=== PATIENT | female | born 1960 | race Hispanic/Latino ===

== ENCOUNTER → 2017-11-17 | Day surgery (SDC) | payer MEDICARE ==
[~2017-11-17] MED LIST: ACETAMINOPHEN 1000 MG/100 ML IV ONE; AMBIEN5 MG PO; BUPIVACAINE HCL 0.5% INJ 30 ML VIAL INJ ONE; CEFAZOLIN SOD 2 GM/D5W 50ML 50 ML IV ONE; DEXAMETHASONE SOD PHOS INJ 4 MG/ML VIAL ONE; FENTANYL CITRATE/PF 100MCG/2 ML INJ ONE; LIDOCAINE HCL 2% LOCAL INJ 5 ML SDV VIAL INJ ONE; MIDAZOLAM HCL 2 MG/2 ML VIAL ONE; NEOSTIGMINE 1 MG/ML 10ML VIAL ONE; NORCO 5-325 TA1 EACH PO; ONDANSETRON HCL INJ 2 MG/ML VIAL ONE; PROPOFOL IV EMULSION 10 MG/ML 20 ML VIAL ONE; SEVOFLURANE INHAL SOLN 250 ML PEN BTL ONE
--- NOTE | 2017-11-17 10:48 | Operative Report ---
DATE OF PROCEDURE: November 17, 2017 EMPLOYMENT OFFICER: None PREOPERATIVE DIAGNOSIS: Painful keloid scar. POSTOPERATIVE DIAGNOSES 1. Painful keloid scar. 2. Hypertrophic medial aspect of the sesamoid, left foot. PROCEDURES 1. Excision of keloid scar with rotational flap closure. 2. Excision of hypertrophy part of the sesamoid of the medial sesamoid, left foot. PATHOLOGY REMOVED: Scars sent for pathology. HEMOSTASIS: Pneumatic ankle tourniquet. ESTIMATED BLOOD LOSS: Less than 10 mL. MATERIALS: 4-0 nylon and 4-0 Vicryl. INJECTABLES: One mL of Decadron to prevent hypertrophic scar. COMPLICATIONS: None. CONDITION: Stable. PROCEDURE IN DETAIL: Under mild sedation, the patient was brought to the operating room and placed on the operating table in the supine position. Following IV sedation, anesthesia was obtained with general anesthetic. At this point, the left foot was scrubbed, prepped and draped in the usual aseptic manner. It was then lowered to the table. Excision of keloid scar. Attention was then directed to the left foot where 2 semi-elliptical incisions were made in order to access the keloid scar. The incision was deepened down to the pigment and scar was completely excised. It was made in a 3:1 ratio in order to rotate the skin and be able to close it. Attention was then directed to the plantar aspect of the medial sesamoid where it was noted that the tibial sesamoid was hypertrophied. Utilizing an oscillating saw, I had to rasp the hypertrophied part of the sesamoid that was removed. The area was then made smooth with a hand rasp. The area was then flushed with copious amount of normal sterile saline solution. The area was then closed closing the deepest layer with 4-0 Vicryl and 4-0 nylon. One mL of Decadron was infiltrated into the scar in order to prevent hypertrophy to the area. The incision was then dressed with sterile compressive dressing consisting of Adaptic, 4 x 4's, Kerlix, and an Td bandage. The tourniquet was deflated. There was noted to be hyperemic response to all the digits. The patient tolerated the procedure and anesthesia well without complications. Was transported to the recovery room with vital signs stable and vascular status intact to both feet. The patient will be discharged home once she met criteria. She was instructed to be nonweightbearing, ice and elevate the foot while at rest. Follow up with me in the office, and to call the office if she had any questions, concerns or any problems arise. Job#: [id number] JAMES
== END | disposition home or self-care (01) ==
LOC: OR 07:26
PROVIDERS: ATTEND Podiatrist Foot & Ankle Surgery
DX: L91.0 Hypertrophic scar (principal); L90.5 Scar conditions and fibrosis of skin
CPT/HCPCS: 11423; 12042; 88305; 93005; J1100; J2001; J2250; J2405; J2710; 88304

== ENCOUNTER → 2019-10-12 | Day surgery (SDC) | payer MEDICARE, OTHER ==
[~2019-10-12] MED LIST changes: +ACETAMINOPHEN 1000 MG/100 ML 100 ML IV ONE; -ACETAMINOPHEN 1000 MG/100 ML IV ONE; +ATROPINE SULFATE 1 MG/ML VIAL ONE; -BUPIVACAINE HCL 0.5% INJ 30 ML VIAL INJ ONE; +CEFAZOLIN SOD 1 GM/NS 50ML 100 ML IV ONE; -CEFAZOLIN SOD 2 GM/D5W 50ML 50 ML IV ONE; +EPHEDRINE SULFATE INJ 50 MG/ML VIAL ONE; +EPINEPHRINE 1 MG/ML 30ML VIAL ONE; +GLYCOPYRROLATE INJ 0.2 MG/ML VIAL ONE; +LIDOCAINE 2% /EPINEPHRINE 20 ML SDV INJ ONE; +LIPITOR10 MG PO; -NEOSTIGMINE 1 MG/ML 10ML VIAL ONE; -ONDANSETRON HCL INJ 2 MG/ML VIAL ONE; +ONDANSETRON HCL INJ 2MG/ML 2ML 2 MG/ML VIAL ONE; +PROMETHAZINE HCL (IM) 25 MG/ML VIAL ONE; +ROCURONIUM BROMIDE 10 MG/ML 5ML VIAL IV ONE; +ROPIVACAINE 0.5% 5 MG/ML 30 ML SDV ONE; -SEVOFLURANE INHAL SOLN 250 ML PEN BTL ONE
[2019-10-12 13:00] VITALS: BP 123/78
--- NOTE | 2019-10-19 09:17 | Operative Report ---
DATE OF PROCEDURE: 10/12/2019 SURGEON: Amadou Bell MD PREOPERATIVE DIAGNOSIS: Right shoulder rotator cuff tear, right shoulder acromioclavicular joint arthritis. 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 OPERATIONS/PROCEDURES PERFORMED: The patient underwent right shoulder examination under anesthesia, right shoulder arthroscopy, right shoulder arthroscopic debridement of synovitis, right shoulder arthroscopic chondroplasty of the glenoid and humeral head, right shoulder arthroscopic rotator cuff reconstruction, right shoulder arthroscopic subacromial decompression and acromioplasty and right shoulder arthroscopic distal clavicle resection. DELIVERY TRUCK DRIVER: None. ANESTHESIA: General endotracheal intubation anesthesia as well as a regional block. IV FLUIDS: Per the anesthesia record. COMPLICATIONS: None. BRIEF DESCRIPTION OF THE PATIENT'S OPERATIVE PROCEDURE: Ms. White was taken to the operating room and placed in a supine position on the operating table. Following induction of general anesthesia as well as endotracheal intubation, the patient's right upper extremity was examined under anesthesia. She was found to have full passive range of motion of the shoulder joint. There were no gross abnormalities of the shoulder. There was no evidence of instability. The patient's upper extremity was then prepped and draped in standard surgical fashion. Standard posterolateral and anterior port was created without difficulty. The scope was placed within the shoulder joint atraumatically. Examination of the glenohumeral articulation demonstrated chondromalacia of the glenoid and humeral head surfaces. There was diffuse synovitis in the shoulder joint. There were no loose bodies within the shoulder. Examination of the rotator cuff tissue demonstrated a large retracted rotator cuff tear. The rotator cuff tissue was frayed and thinned. The injury involved the supraspinatus and infraspinatus tendons. The shaver was placed in the shoulder joint and the synovitis was debrided. Chondroplasties of the humeral head and glenoid were also performed at this time. Shaver was then used to debride the insertion site for the rotator cuff. The scope was then transferred to subacromial space. Further debridement was performed for the insertion site to create a bleeding bony bed. Suture anchors were then inserted into the greater tuberosity and the rotator cuff was advanced and sutured over the greater tuberosity. This resulted in complete reapproximation of the rotator cuff tissue. However, the rotator cuff tissue was found to be significantly thin and of moderate quality. A bursectomy was then performed. An aggressive acromioplasty was performed. The shoulder was placed through range of motion and found to have no impingement. The anterior portal was then transferred to the subacromial space. The acromioclavicular joint was isolated. A shaver was then used to resect a 1 cm section of the distal clavicle. Scope was transferred to the anterior portal to confirm a complete resection of distal clavicle. The shoulder was then deflated with sterile normal saline. Each of the portal sites were closed. Sterile dressings were applied as well as a shoulder immobilizer. The patient was then awakened and taken to the postanesthesia care unit in stable condition. MD PAT Hall/MINA /[id number]
== END | disposition home or self-care (01) ==
LOC: OR 05:25
PROVIDERS: ATTEND Specialist
DX: M75.121 Complete rotator cuff tear or rupture of right shoulder, not specified as traumatic (principal); M19.011 Primary osteoarthritis, right shoulder; M65.811 Other synovitis and tenosynovitis, right shoulder; M94.211 Chondromalacia, right shoulder; M79.7 Fibromyalgia; M54.2 Cervicalgia; E78.5 Hyperlipidemia, unspecified; K21.9 Gastro-esophageal reflux disease without esophagitis; K25.9 Gastric ulcer, unspecified as acute or chronic, without hemorrhage or perforation; Z88.8 Allergy status to other drugs, medicaments and biological substances; Z01.810 Encounter for preprocedural cardiovascular examination; Z01.812 Encounter for preprocedural laboratory examination; Z11.59 Encounter for screening for other viral diseases
CPT/HCPCS: 29824; 29826; 29827; 87635; 93005; C1713; J0131; J0461; J0690; J1100; J2001 ×2; J2250; J2405; J2550; J2704; J2795; J3010